=== PATIENT | male | born 1980 | race Two or more races ===

== ENCOUNTER 2020-05-06 01:36 | Emergency (ER) | payer OTHER ==
[~2020-05-06] VITALS: Ht 185.4 cm; Wt 102.1 kg
[2020-05-06 01:37] VITALS: BP 139/76
== END 2020-05-06 01:47 | disposition left against medical advice (07) ==
LOC: ER 01:36
DX: Z53.21 Procedure and treatment not carried out due to patient leaving prior to being seen by health care provider (principal)